=== PATIENT | male | born 1955 | race Caucasian/White ===

== ENCOUNTER 2016-10-27 14:58 | Outpatient (CLI) | payer OTHER ==
[2014-09-21 01:57] VITALS: BP 149/81
== END 2016-10-27 15:00 ==
LOC: NEPHRO 14:58
PROVIDERS: ATTEND Internal Medicine Nephrology
DX: E11.9 Type 2 diabetes mellitus without complications (principal); N18.9 Chronic kidney disease, unspecified; I10 Essential (primary) hypertension
CPT/HCPCS: 99213

== ENCOUNTER 2016-12-29 15:55 | Outpatient (CLI) | payer OTHER ==
[2014-09-21 01:57] VITALS: BP 149/81
== END 2016-12-29 15:56 ==
LOC: NEPHRO 15:55
PROVIDERS: ATTEND Internal Medicine Nephrology
DX: E11.9 Type 2 diabetes mellitus without complications (principal); I10 Essential (primary) hypertension; N18.3 Chronic kidney disease, stage 3 (moderate)
CPT/HCPCS: 99213

== ENCOUNTER 2016-12-29 16:35 | Outpatient (CLI) | payer OTHER ==
[2014-09-21 01:57] VITALS: BP 149/81
[2016-12-29 17:01] LABS: BASOPHILS % 1.3 (0.0-1.5); EOSINOPHILS % 2.9 % (0.0-6.8); MEAN CORPUSCULAR VOLUME 89.4 fl (80.0-100.0); MONOCYTES % 6.3 % (0.0-11.0); NEUTROPHILS # 3.2 # k/uL (1.4-7.7)
[2016-12-29 17:05] LABS: APPEARANCE,URINE Clear (CLEAR); COLOR,URINE Yellow (YELLOW); OCCULT BLOOD,URINE Negative (NEGATIVE); UROBILINOGEN URINE 0.2 Eu (0.2-1.0)
[2016-12-29 17:20] LABS: AMORPHOUS SEDIMENT,UR FEW (NEGATIVE)
[2016-12-29 17:28] LABS: eGFR (African) > 60; eGFR (Non-African) 59
[2016-12-30 06:11] LABS: PROTEIN mg/dL 6 mg/dL
== END 2016-12-29 16:36 ==
LOC: LAB 16:35
PROVIDERS: ATTEND Internal Medicine Nephrology
DX: I10 Essential (primary) hypertension (principal); E11.9 Type 2 diabetes mellitus without complications; N18.3 Chronic kidney disease, stage 3 (moderate)
CPT/HCPCS: 36415; 80053; 81002; 82570; 83036; 83970; 84156; 85025

== ENCOUNTER 2017-09-21 14:24 | Outpatient (CLI) | payer OTHER ==
[2014-09-21 01:57] VITALS: BP 149/81
== END 2017-09-21 14:30 ==
LOC: NEPHRO 14:24
PROVIDERS: ATTEND Internal Medicine Nephrology
DX: I10 Essential (primary) hypertension (principal); E11.9 Type 2 diabetes mellitus without complications; N17.9 Acute kidney failure, unspecified
CPT/HCPCS: 99213

== ENCOUNTER 2017-11-16 15:03 | Outpatient (CLI) | payer OTHER ==
[2014-09-21 01:57] VITALS: BP 149/81
== END 2017-11-16 15:10 ==
LOC: NEPHRO 15:03
PROVIDERS: ATTEND Internal Medicine Nephrology
DX: N17.9 Acute kidney failure, unspecified (principal)
CPT/HCPCS: 99213

== ENCOUNTER 2019-02-13 16:23 | Outpatient (CLI) | payer OTHER ==
[2014-09-21 01:57] VITALS: BP 149/81
[2019-02-13 16:44] LABS: BASOPHILS % 0.6 % (0.0-1.5); NEUTROPHILS # 5.8 # k/uL (1.4-7.7)
--- NOTE | 2019-02-13 17:03 | Diagnostic Imaging Report ---
PATIENT MR#: [id number] PATIENT PATIENT NAME: PARIS LURICH DATE OF : 1955 REFERRING PHYSICIAN: Mayi Cintron EXAM DATE: 02/13/2019 ACCESSION NUMBER: [id number] EXAM DESCRIPTION: ABDOMEN 1VIEW Examination: Obstruction series History: Abdominal discomfort Findings: 2 views obtained of the abdomen. No abnormal dilation of the large or small bowel. Air and stool throughout the large bowel. No suspicious calcification projecting over the renal fossa or the lower pelvic anne on. Vascular calcifications. Osseous degenerative changes. Impression: No bowel obstruction. No suspicious calcifications by plain film sensitivity. Read by: Dr. Marin Schuler Transcribed by: Transcribed Date: Electronically signed by: Dr. Marin Schuler Date signed: 02/13/2019 5:02:27 PM
--- NOTE | 2019-02-13 17:03 | Diagnostic Imaging Report ---
PATIENT MR#: [id number] PATIENT PATIENT NAME: PARIS ULRICH DATE OF : 1955 REFERRING PHYSICIAN: Mayi Cintron EXAM DATE: 02/13/2019 ACCESSION NUMBER: [id number] EXAM DESCRIPTION: CHEST 2VIEW Examination: PA and lateral chest. History: Evaluate lung horne. Comparison exam: None provided. Findings: PA and lateral views of the chest demonstrates a normal cardiac and mediastinal silhouette. Tortuous aorta. No focal infiltrate. No blunting of the costophrenic margins. Osseous structures are appropriate for a ge. Impression: No acute pulmonary process. Read by: Dr. Marin Schuler Transcribed by: Transcribed Date: Electronically signed by: Dr. Marin Schuler Date signed: 02/13/2019 5:02:27 PM
[2019-02-13 17:21] LABS: eGFR (Non-African) 45
== END 2019-02-13 16:28 ==
LOC: LAB 16:23
PROVIDERS: ATTEND Family Medicine
DX: R10.9 Unspecified abdominal pain (principal)
CPT/HCPCS: 36415; 71046; 74018; 80053; 85025; 87086

== ENCOUNTER 2019-02-14 09:27 | Outpatient (CLI) | payer OTHER ==
[2014-09-21 01:57] VITALS: BP 149/81
--- NOTE | 2019-02-14 13:36 | Diagnostic Imaging Report ---
PATIENT MR#: [id number] PATIENT PATIENT NAME: PARIS ULRICH DATE OF : 1955 REFERRING PHYSICIAN: Mayi Cintron EXAM DATE: 02/14/2019 ACCESSION NUMBER: [id number] EXAM DESCRIPTION: CT ABD PELVIS W/O CO Examination: CT Abdomen/pelvis History: RIGHT FLANK PAIN X 1 WEEK Comparison exams: None available Technique: CT Abdomen/pelvis without IV protocol. Findings: Liver, spleen, adrenals, pancreas and gallbladder are without gross irregularity given exa m technique. No gallstone. Peripelvic cysts. No suspicious renal calcifications. Ureters are nondilated in their cour se through the abdomen and pelvis. No central calcifications. Bladder margin within normal limits. Abdominal aorta w ithout aneurysm. Mild peripheral atherosclerotic disease. Cardiac silhouette is not enlarged. No pericardial effusion. Vascular calcifications. Bowel unopacified limiting evaluation. No abnormal dilation. Stool within the large bowel limiting se nsitivity. No mesenteric inflammatory changes or free fluid. Appendix not visualized. Osseous structures appropriate for age. Lung bases without infiltrate. Mild posterior pleural thicke martina without effusion. Impression: No acute upper abdominal organ inflammatory process. No abnormal bowel dilation or inflammation. No gallstone. No suspicious renal calcifications or abnormal ureteric dilation. No lung base consolidation or effusion. Read by: Dr. Marin Schuler Transcribed by: Transcribed Date: Electronically signed by: Dr. Marin Schuler Date signed: 02/14/2019 1:35:30 PM
== END 2019-02-14 09:37 | disposition home or self-care (01) ==
LOC: RAD 09:27
PROVIDERS: ATTEND Family Medicine
DX: R10.9 Unspecified abdominal pain (principal)
CPT/HCPCS: 74176